=== PATIENT | male | born 1945 | race Caucasian/White ===

== ENCOUNTER 2017-01-16 19:59 | Inpatient (IN) | payer OTHER, MEDICAID ==
[~2017-01-16] VITALS: Ht 175.3 cm; Wt 82.1 kg
[~2017-01-16 19:59] MED LIST: ALBUAER3 IN; ALBUPOW26 XX; ASPI-231 PO; FLUT500M2 INH; IPRIH INH; METO50TA7 PO; OMEP20CA5 PO
[2017-01-16 20:36] LABS: Basophils # (auto) 0.1 uL; Basophils % (auto) 0.3 % (0.0-2.0); Eosinophils # (auto) 0.1 uL; Eosinophils % (auto) 0.8 % (0.0-7.0); Hemoglobin 16.3 g/dL (13.5-17.5); Lymphocytes # (auto) 3.6 uL; Lymphocytes % (auto) 20.5 % (10.0-50.0); Mean Corpuscular Hemoglobin 31.8 pg (28.0-32.0); Mean Corpuscular Hgb Conc. 32.7 g/dL (32.0-36.0); Mean Corpuscular Volume 97.3 fL (80.0-100.0); Mean Platelet Volume 7.4 fL (7.4-10.4); Monocytes # (auto) 1.5 uL; Monocytes % (auto) 8.3 % (0.0-12.0); Neutrophils # (auto) 12.4 uL; Neutrophils % (auto) 70.1 % (37.0-80.0); Platelet Count (auto) 407 10^3/uL (140-450); Red Cell Distribution Width 13.3 % (11.6-16.0); White Blood Cell 17.6 10^3/uL (4.4-10.8)
[2017-01-16 21:00] LABS: INR 0.96 (0.9-1.15); Partial Thromboplastin Time 24.3 sec (22.64-33.71); Prothrombin Time 10.4 sec (9.37-12.3)
[2017-01-16 21:21] LABS: Albumin 3.3 g/dL (3.4-5.0); BUN/Creatinine Ratio 18.4; Calcium 8.6 mg/dL (8.5-10.1); Magnesium 2.7 mg/dL (1.6-2.6); Potassium 4.8 mmol/L (3.5-5.1); Total Protein 6.6 g/dL (6.4-8.2)
[2017-01-16 21:30] LABS: B-Type Natriuretic Peptide 19.5 pg/mL (0-100); Temperature: 22.1 C (20.0-25.0)
[2017-01-16] MEDS ORDERED: IPRATROPIUM BROM 0.5 MG/2.5ML INH SOL NEB ONE (22:30)
[2017-01-16] MEDS ORDERED: methylPREDNISolone SOD SUCC 125 MG/2 ML VL IV ONE (22:30)
[2017-01-16] MEDS ORDERED: ALBUTEROL SULF 2.5 MG/0.5ML(0.5%) NEB SOLN NEB ONE (22:30)
[2017-01-16] MEDS ORDERED: cefTRIAXone 1GM/50ML D5W 50 ML IV ONE (22:30)
[2017-01-17] MEDS ORDERED: IOHEXOL 350 MG/ML 100ML IJ ONE (01:09)
[2017-01-17] MEDS ORDERED: ALBUTEROL SULF 2.5 MG/0.5ML(0.5%) NEB SOLN NEB ONE (01:30)
[2017-01-17] MEDS ORDERED: IPRATROPIUM BROM 0.5 MG/2.5ML INH SOL NEB ONE (01:30)
[2017-01-17] MEDS ORDERED: DEXTROSE (50%) 50ML SYRG IV PRN (03:00)
[2017-01-17] MEDS ORDERED: ONDANSETRON HCL 4 MG/2 ML VIAL IV PRN (03:00)
[2017-01-17] MEDS ORDERED: ACETAMINOPHEN 325 MG TAB PO PRN (03:00)
[2017-01-17 03:22] VITALS: BP 111/74
[2017-01-17 05:00] VITALS: BP 132/78
[2017-01-17] MEDS: ACCU-CHEK COMFORT CURVE STRIP VI SCH ×3 (07:26→17:54)
[2017-01-17] MEDS: InsuLIN REG 1unit/0.01ml Soln (100units/ml) SC SCH ×3 (07:27→17:54)
[2017-01-17] MEDS: FAMOTIDINE 20 MG TAB PO SCH ×2 (08:49→20:37)
[2017-01-17] MEDS: ENOXAPARIN SOD 40 MG/0.4 ML SYRINGE SC SCH (08:49)
[2017-01-17] MEDS: METOPROLOL SUCCINATE XL 50 MG TAB PO SCH (08:50)
[2017-01-17 09:00] VITALS: BP 124/78
[2017-01-17] MEDS ORDERED: cefTRIAXone 1GM/50ML D5W 50 ML IV SCH (09:00)
[2017-01-17] MEDS: IPRATROPIUM BROM 0.5 MG/2.5ML INH SOL NEB PRN ×4 (09:03→18:44)
[2017-01-17] MEDS: ALBUTEROL SULF 2.5 MG/0.5ML(0.5%) NEB SOLN NEB PRN ×4 (09:03→18:44)
[2017-01-17 13:00] VITALS: BP 105/72
[2017-01-17] MEDS ORDERED: DOXYCYCLINE 100 MG TAB/CAP PO ONE (14:15)
[2017-01-17 17:00] VITALS: BP 119/77
[2017-01-17] MEDS: BUDESONIDE (INHALATION) 0.5 MG/2 ML NEB NEB SCH (18:44)
[2017-01-17] MEDS: DOXYCYCLINE 100 MG TAB/CAP PO SCH (20:37)
[2017-01-17] MEDS: methylPREDNISolone SOD SUCC 40 MG/ML VL IV SCH (20:37)
[2017-01-17] MEDS: HYDROcodone-ACET 5/325MG TAB PO PRN (20:38)
[2017-01-17 21:14] VITALS: BP 105/67
[2017-01-18] VITALS (7 sets, daily range): BP systolic 117–147; BP diastolic 71–96
[2017-01-18] MEDS: ACCU-CHEK COMFORT CURVE STRIP VI SCH ×4 (00:12→18:00)
[2017-01-18] MEDS: InsuLIN REG 1unit/0.01ml Soln (100units/ml) SC SCH ×4 (00:14→18:00)
[2017-01-18] MEDS: HYDROcodone-ACET 5/325MG TAB PO PRN ×4 (00:54→20:17)
[2017-01-18] MEDS: methylPREDNISolone SOD SUCC 40 MG/ML VL IV SCH ×3 (05:25→21:49)
[2017-01-18] MEDS: BUDESONIDE (INHALATION) 0.5 MG/2 ML NEB NEB SCH ×2 (06:00→18:21)
[2017-01-18] MEDS: ALBUTEROL SULF 2.5 MG/0.5ML(0.5%) NEB SOLN NEB PRN ×2 (06:00→22:53)
[2017-01-18] MEDS: IPRATROPIUM BROM 0.5 MG/2.5ML INH SOL NEB PRN ×2 (06:00→22:53)
[2017-01-18] MEDS: METOPROLOL SUCCINATE XL 50 MG TAB PO SCH (10:31)
[2017-01-18] MEDS: DOXYCYCLINE 100 MG TAB/CAP PO SCH ×2 (10:31→21:49)
[2017-01-18] MEDS: ENOXAPARIN SOD 40 MG/0.4 ML SYRINGE SC SCH (10:32)
[2017-01-18] MEDS: FAMOTIDINE 20 MG TAB PO SCH ×2 (10:32→21:50)
[2017-01-19] MEDS ORDERED: HALOPERIDOL LACTATE 5 MG/ML INJ VIAL IM ONE (01:15)
[2017-01-19] MEDS: IPRATROPIUM BROM 0.5 MG/2.5ML INH SOL NEB PRN ×4 (02:34→22:55)
[2017-01-19] MEDS: ALBUTEROL SULF 2.5 MG/0.5ML(0.5%) NEB SOLN NEB PRN ×4 (02:34→22:55)
[2017-01-19] MEDS ORDERED: methylPREDNISolone SOD SUCC 125 MG/2 ML VL ONE (02:36)
[2017-01-19] MEDS ORDERED: methylPREDNISolone SOD SUCC 125 MG/2 ML VL IV ONE (02:45)
[2017-01-19] MEDS: methylPREDNISolone SOD SUCC 40 MG/ML VL IV SCH ×2 (05:46→16:37)
[2017-01-19] MEDS: ACCU-CHEK COMFORT CURVE STRIP VI SCH ×5 (05:59→23:20)
[2017-01-19] MEDS: InsuLIN REG 1unit/0.01ml Soln (100units/ml) SC SCH ×6 (05:59→23:20)
[2017-01-19] MEDS ORDERED: LORazepam 2MG/ML-1ML VIAL IV PRN (06:30)
[2017-01-19] MEDS: BUDESONIDE (INHALATION) 0.5 MG/2 ML NEB NEB SCH ×2 (06:34→22:55)
[2017-01-19] MEDS ORDERED: LORazepam 2MG/ML-1ML VIAL ONE (06:37)
[2017-01-19] MEDS ORDERED: LORazepam 2MG/ML-1ML VIAL IV ONE (06:45)
[2017-01-19 08:00] VITALS: BP 110/60
[2017-01-19 09:50] VITALS: BP 115/78
[2017-01-19] MEDS: ENOXAPARIN SOD 40 MG/0.4 ML SYRINGE SC SCH (10:00)
[2017-01-19] MEDS: METOPROLOL SUCCINATE XL 50 MG TAB PO SCH (10:00)
[2017-01-19] MEDS: DOXYCYCLINE 100 MG TAB/CAP PO SCH ×2 (10:00→20:35)
[2017-01-19] MEDS: FAMOTIDINE 20 MG TAB PO SCH ×2 (10:00→20:35)
[2017-01-19] MEDS ORDERED: HALOPERIDOL LACTATE 5 MG/ML INJ VIAL IV PRN (11:45)
[2017-01-19 14:45] LABS: Basophils # (auto) 0 uL; Eosinophils # (auto) 0 uL; Hematocrit 44.6 % (41.0-53.0); Hemoglobin 14.6 g/dL (13.5-17.5); Lymphocytes % (auto) 5.4 % (10.0-50.0); Mean Corpuscular Hemoglobin 31.6 pg (28.0-32.0); Mean Corpuscular Hgb Conc. 32.6 g/dL (32.0-36.0); Mean Platelet Volume 8.1 fL (7.4-10.4); Monocytes # (auto) 0.5 uL; Monocytes % (auto) 2.9 % (0.0-12.0); Neutrophils # (auto) 16.6 uL; Neutrophils % (auto) 91.7 % (37.0-80.0); Platelet Count (auto) 341 10^3/uL (140-450); White Blood Cell 18.1 10^3/uL (4.4-10.8)
[2017-01-19 14:55] LABS: Albumin 3.1 g/dL (3.4-5.0); BUN/Creatinine Ratio 29.1; Calcium 8.8 mg/dL (8.5-10.1); Potassium 4.7 mmol/L (3.5-5.1)
[2017-01-19 15:04] LABS: Bilirubin, Total 0.6 mg/dL (0.2-1.0); Temperature: 22.9 C (20.0-25.0); Total Protein 6.2 g/dL (6.4-8.2)
[2017-01-19] MEDS ORDERED: CYANOCOBALAMIN (B-12) 1000 MCG/1 ML VIAL SUBCUT ONE (15:45)
[2017-01-19 16:25] LABS: Urine Bilirubin Negative (Negative); Urine Blood Negative /uL (Negative); Urine Color Yellow (Yellow); Urine Glucose TRACE mg/dL (Normal); Urine Ketone Negative (Negative); Urine Nitrite Negative (Negative); Urine RBC <1 /hpf (0 - 3); Urine Urobilinogen Normal (Negative); Urine pH 6.5 (5.0-8.0)
[2017-01-19] MEDS: HYDROcodone-ACET 5/325MG TAB PO PRN ×2 (16:37→20:55)
[2017-01-19 20:00] VITALS: BP 123/75
[2017-01-19] MEDS ORDERED: CYANOCOBALAMIN (B-12) 1000 MCG/1 ML VIAL IM ONE (22:15)
[2017-01-20] MEDS: ALBUTEROL SULF 2.5 MG/0.5ML(0.5%) NEB SOLN NEB PRN ×4 (03:31→14:27)
[2017-01-20] MEDS: IPRATROPIUM BROM 0.5 MG/2.5ML INH SOL NEB PRN ×4 (03:31→14:27)
[2017-01-20 06:00] VITALS: BP 117/85
[2017-01-20] MEDS: methylPREDNISolone SOD SUCC 40 MG/ML VL IV SCH ×2 (06:19→17:51)
[2017-01-20] MEDS: ACCU-CHEK COMFORT CURVE STRIP VI SCH ×4 (06:19→23:40)
[2017-01-20] MEDS: InsuLIN REG 1unit/0.01ml Soln (100units/ml) SC SCH ×4 (06:34→23:40)
[2017-01-20 08:00] VITALS: BP 146/100
[2017-01-20] MEDS: HYDROcodone-ACET 5/325MG TAB PO PRN ×3 (08:35→22:39)
[2017-01-20] MEDS: DOXYCYCLINE 100 MG TAB/CAP PO SCH ×2 (09:20→21:32)
[2017-01-20] MEDS: METOPROLOL SUCCINATE XL 50 MG TAB PO SCH (09:21)
[2017-01-20] MEDS: CYANOCOBALAMIN 500 MCG TAB PO SCH (09:21)
[2017-01-20] MEDS: FAMOTIDINE 20 MG TAB PO SCH ×2 (09:21→21:32)
[2017-01-20] MEDS: ENOXAPARIN SOD 40 MG/0.4 ML SYRINGE SC SCH (09:22)
[2017-01-20] MEDS: BUDESONIDE (INHALATION) 0.5 MG/2 ML NEB NEB SCH ×2 (09:32→18:28)
[2017-01-20] MEDS ORDERED: CYANOCOBALAMIN (B-12) 1000 MCG/1 ML VIAL SUBCUT SCH (10:00)
[2017-01-20 17:00] VITALS: BP 120/78
[2017-01-20] MEDS: IPRATROPIUM BROM 0.5 MG/2.5ML INH SOL NEB SCH ×2 (18:27→22:01)
[2017-01-20] MEDS: ALBUTEROL SULF 2.5 MG/0.5ML(0.5%) NEB SOLN NEB SCH ×2 (18:27→22:01)
[2017-01-20 21:51] VITALS: BP 134/83
[2017-01-20] MEDS ORDERED: HALOPERIDOL LACTATE 5 MG/ML INJ VIAL IM PRN (22:00)
[2017-01-20] MEDS ORDERED: ALBUTEROL SULF 2.5 MG/0.5ML(0.5%) NEB SOLN NEB SCH (22:00)
[2017-01-20] MEDS ORDERED: IPRATROPIUM BROM 0.5 MG/2.5ML INH SOL NEB SCH (22:00)
[2017-01-21] MEDS: IPRATROPIUM BROM 0.5 MG/2.5ML INH SOL NEB SCH ×6 (02:00→22:24)
[2017-01-21] MEDS: ALBUTEROL SULF 2.5 MG/0.5ML(0.5%) NEB SOLN NEB SCH ×6 (02:00→22:24)
[2017-01-21 04:45] VITALS: BP 149/88
[2017-01-21 05:45] LABS: INR 0.98 (0.9-1.15); Prothrombin Time 10.6 sec (9.37-12.3)
[2017-01-21 05:47] LABS: Basophils # (auto) 0 uL; Eosinophils # (auto) 0 uL; Hematocrit 44.7 % (41.0-53.0); Hemoglobin 14.7 g/dL (13.5-17.5); Lymphocytes % (auto) 7.4 % (10.0-50.0); Mean Corpuscular Hemoglobin 31.8 pg (28.0-32.0); Mean Corpuscular Hgb Conc. 32.9 g/dL (32.0-36.0); Mean Corpuscular Volume 96.9 fL (80.0-100.0); Mean Platelet Volume 8.5 fL (7.4-10.4); Monocytes # (auto) 1.2 uL; Monocytes % (auto) 8.8 % (0.0-12.0); Neutrophils # (auto) 11.3 uL; Neutrophils % (auto) 83.8 % (37.0-80.0); Platelet Count (auto) 319 10^3/uL (140-450); Red Cell Distribution Width 13.2 % (11.6-16.0); White Blood Cell 13.4 10^3/uL (4.4-10.8)
[2017-01-21] MEDS: BUDESONIDE (INHALATION) 0.5 MG/2 ML NEB NEB SCH ×2 (05:57→19:06)
[2017-01-21] MEDS: InsuLIN REG 1unit/0.01ml Soln (100units/ml) SC SCH ×3 (06:00→18:20)
[2017-01-21 06:01] LABS: BUN/Creatinine Ratio 29.1; Calcium 8.7 mg/dL (8.5-10.1); Magnesium 2.9 mg/dL (1.6-2.6); Potassium 4.7 mmol/L (3.5-5.1)
[2017-01-21] MEDS: methylPREDNISolone SOD SUCC 40 MG/ML VL IV SCH (06:16)
[2017-01-21] MEDS: ACCU-CHEK COMFORT CURVE STRIP VI SCH ×3 (06:16→18:19)
[2017-01-21 08:00] VITALS: BP 114/80
[2017-01-21 09:31] VITALS: BP 114/80
[2017-01-21] MEDS: DOXYCYCLINE 100 MG TAB/CAP PO SCH ×2 (09:53→21:31)
[2017-01-21] MEDS: predniSONE 20 MG TAB PO SCH (09:53)
[2017-01-21] MEDS: FAMOTIDINE 20 MG TAB PO SCH ×2 (09:54→21:30)
[2017-01-21] MEDS: METOPROLOL SUCCINATE XL 50 MG TAB PO SCH (09:54)
[2017-01-21] MEDS: CYANOCOBALAMIN 500 MCG TAB PO SCH (09:54)
[2017-01-21] MEDS: HYDROcodone-ACET 5/325MG TAB PO PRN ×2 (09:57→21:30)
[2017-01-21] MEDS: ENOXAPARIN SOD 40 MG/0.4 ML SYRINGE SC SCH (09:57)
[2017-01-21 13:00] VITALS: BP 134/95
[2017-01-21 17:00] VITALS: BP 136/92
[2017-01-21 21:44] VITALS: BP 116/83
[2017-01-22] MEDS: ACCU-CHEK COMFORT CURVE STRIP VI SCH ×2 (00:37→06:08)
[2017-01-22] MEDS: IPRATROPIUM BROM 0.5 MG/2.5ML INH SOL NEB SCH ×4 (02:21→13:22)
[2017-01-22] MEDS: ALBUTEROL SULF 2.5 MG/0.5ML(0.5%) NEB SOLN NEB SCH ×4 (02:21→13:22)
[2017-01-22 04:54] VITALS: BP 145/87
[2017-01-22] MEDS: InsuLIN REG 1unit/0.01ml Soln (100units/ml) SC SCH ×2 (06:00)
[2017-01-22 06:28] LABS: Basophils # (auto) 0.2 uL; Basophils % (auto) 1.1 % (0.0-2.0); Eosinophils # (auto) 0 uL; Eosinophils % (auto) 0.1 % (0.0-7.0); Lymphocytes # (auto) 2.4 uL; Lymphocytes % (auto) 16.4 % (10.0-50.0); Mean Corpuscular Hemoglobin 31.7 pg (28.0-32.0); Mean Corpuscular Hgb Conc. 32.6 g/dL (32.0-36.0); Mean Corpuscular Volume 97.2 fL (80.0-100.0); Mean Platelet Volume 8.4 fL (7.4-10.4); Monocytes # (auto) 1.5 uL; Monocytes % (auto) 10.3 % (0.0-12.0); Neutrophils # (auto) 10.5 uL; Neutrophils % (auto) 72.1 % (37.0-80.0); Platelet Count (auto) 334 10^3/uL (140-450); Red Cell Distribution Width 13.1 % (11.6-16.0); White Blood Cell 14.6 10^3/uL (4.4-10.8)
[2017-01-22] MEDS: BUDESONIDE (INHALATION) 0.5 MG/2 ML NEB NEB SCH (06:32)
[2017-01-22 06:48] LABS: INR 0.97 (0.9-1.15); Prothrombin Time 10.5 sec (9.37-12.3)
[2017-01-22 06:57] LABS: BUN/Creatinine Ratio 26.5; Calcium 8.6 mg/dL (8.5-10.1); Magnesium 2.8 mg/dL (1.6-2.6); Potassium 4.3 mmol/L (3.5-5.1)
[2017-01-22] MEDS ORDERED: LORazepam 2MG/ML-1ML VIAL IV ONE (08:45)
[2017-01-22] MEDS ORDERED: CYAN500T2 PO (09:22)
[2017-01-22] MEDS: DOXYCYCLINE 100 MG TAB/CAP PO SCH (10:40)
[2017-01-22] MEDS: predniSONE 20 MG TAB PO SCH (10:40)
[2017-01-22] MEDS: METOPROLOL SUCCINATE XL 50 MG TAB PO SCH (10:41)
[2017-01-22] MEDS: FAMOTIDINE 20 MG TAB PO SCH (10:41)
[2017-01-22] MEDS: ENOXAPARIN SOD 40 MG/0.4 ML SYRINGE SC SCH (10:44)
[2017-01-22] MEDS: CYANOCOBALAMIN 500 MCG TAB PO SCH (10:44)
[2017-01-22 10:51] VITALS: BP 131/83
[2017-01-22 12:00] VITALS: BP 131/83
== END 2017-01-22 14:30 | disposition home health service (06) | DRG 70 ==
LOC: EDBD 19:59 → ER 20:02 → OVERFLOW 20:03 → CENTRAL 01-17 05:10 → TELE-CENTR 01-19 02:47
PROVIDERS: ADMIT Nurse Practitioner; ATTEND Internal Medicine
DX: G93.41 Metabolic encephalopathy (principal); J96.20 Acute and chronic respiratory failure, unspecified whether with hypoxia or hypercapnia; J44.1 Chronic obstructive pulmonary disease with (acute) exacerbation; E44.1 Mild protein-calorie malnutrition; J98.11 Atelectasis; G32.0 Subacute combined degeneration of spinal cord in diseases classified elsewhere; G95.89 Other specified diseases of spinal cord; N18.9 Chronic kidney disease, unspecified; E53.8 Deficiency of other specified B group vitamins; F17.210 Nicotine dependence, cigarettes, uncomplicated; F29 Unspecified psychosis not due to a substance or known physiological condition; D72.829 Elevated white blood cell count, unspecified; I12.9 Hypertensive chronic kidney disease with stage 1 through stage 4 chronic kidney disease, or unspecified chronic kidney disease; B19.20 Unspecified viral hepatitis C without hepatic coma; R32 Unspecified urinary incontinence; T38.0X5A Adverse effect of glucocorticoids and synthetic analogues, initial encounter; G62.9 Polyneuropathy, unspecified; Z83.3 Family history of diabetes mellitus; Z85.528 Personal history of other malignant neoplasm of kidney; Z90.5 Acquired absence of kidney; Z86.73 Personal history of transient ischemic attack (TIA), and cerebral infarction without residual deficits; Z99.81 Dependence on supplemental oxygen; Z79.82 Long term (current) use of aspirin; Z79.899 Other long term (current) drug therapy; Z88.8 Allergy status to other drugs, medicaments and biological substances; Z68.26 Body mass index [BMI] 26.0-26.9, adult; Z89.022 Acquired absence of left finger(s)
CPT/HCPCS: 36415; 36600; 70450; 71010; 71275; 80048; 80053; 81001; 82607; 82746; 82805; 82962; 83735; 83880; 84439; 84443; 84481; 84484; 85025; 85379; 85610; 85730; 93005; 94640; 95819; 96365; A4565; G0434; J0696; J1815

== ENCOUNTER 2017-04-29 08:55 | Inpatient (IN) | payer OTHER, MEDICAID ==
[~2017-04-29] VITALS: Ht 180.3 cm; Wt 77.6 kg
[~2017-04-29 08:55] MED LIST changes: -ALBUPOW26 XX; +CYAN500T2 PO; +LISI-275 PO; -METO50TA7 PO; -OMEP20CA5 PO; +PRED-559 PO
[2017-04-29 09:41] LABS: CONDITION Y; DEFINITIVE SEE PRINTOUT; Hemoglobin 19.3 g/dL (13.5-17.5); Mean Corpuscular Hemoglobin 31.6 pg (28.0-32.0); Mean Corpuscular Hgb Conc. 33.2 g/dL (32.0-36.0); Mean Platelet Volume 8.2 fL (7.4-10.4); Platelet Count (auto) 252 10^3/uL (140-450); Red Cell Distribution Width 13.4 % (11.6-16.0); SUSPECT SEE PRINTOUT; White Blood Cell 20.6 10^3/uL (4.4-10.8)
[2017-04-29 09:52] LABS: Metamyelocytes % 0; Myelocytes % 0; Promyelocytes % 0; Reactive Lymphocytes 0
[2017-04-29 10:13] LABS: Albumin 3.7 g/dL (3.4-5.0); BUN/Creatinine Ratio 34.2; Bilirubin, Total 1.5 mg/dL (0.2-1.0); Calcium 9.4 mg/dL (8.5-10.1); Total Protein 7.4 g/dL (6.4-8.2)
[2017-04-29] MEDS ORDERED: SODIUM CHLORIDE 0.9% 1,000 ML IV ONE (11:00)
[2017-04-29] MEDS ORDERED: methylPREDNISolone SOD SUCC 125 MG/2 ML VL IV ONE (11:00)
[2017-04-29] MEDS ORDERED: SODIUM CHLORIDE 0.9% 250 ML IV ONE (11:00)
[2017-04-29 11:09] LABS: Large Platelets FEW; Platelet Estimate Adequate
[2017-04-29] MEDS ORDERED: cefTRIAXone 1GM/50ML D5W 50 ML IV ONE (12:30)
[2017-04-29] MEDS ORDERED: PROMETHAZINE HCL 25 MG/ML 1ML IV PRN (12:45)
[2017-04-29] MEDS ORDERED: LACTULOSE 20Gm/30ML SOLN PO PRN (12:45)
[2017-04-29] MEDS ORDERED: NITROGLYCERIN 0.4 MG SL TAB SL PRN (12:45)
[2017-04-29] MEDS ORDERED: MORPHINE SULF INJ 2 MG/ML SYRINGE 1ML IV PRN (12:45)
[2017-04-29] MEDS ORDERED: TEMAZEPAM 15 MG CAP PO PRN (12:45)
[2017-04-29] MEDS ORDERED: ALBUTEROL SULF 2.5 MG/0.5ML(0.5%) NEB SOLN NEB PRN (12:45)
[2017-04-29] MEDS ORDERED: ACETAMINOPHEN 500 MG TAB PO PRN (12:45)
[2017-04-29] MEDS ORDERED: DEXTROSE (50%) 50ML SYRG IV PRN (12:45)
[2017-04-29] MEDS ORDERED: HYDROcodone-ACET 5/325MG TAB PO PRN (12:45)
[2017-04-29] MEDS: SODIUM CHLORIDE 0.9% 1,000 ML IV SCH (12:54)
[2017-04-29] MEDS ORDERED: PANTOPRAZOLE 40 MG TAB PO ONE (13:00)
[2017-04-29] MEDS ORDERED: ENOXAPARIN SOD 40 MG/0.4 ML SYRINGE SC ONE (13:00)
[2017-04-29] MEDS ORDERED: AZITHROMYCIN 500MG/D5W 250ML 250 ML IV ONE (13:00)
[2017-04-29] MEDS ORDERED: ASPirin-EC 81 mg tab PO ONE (13:00)
[2017-04-29] MEDS ORDERED: CYANOCOBALAMIN 500 MCG TAB PO ONE (13:00)
[2017-04-29] MEDS ORDERED: LISINOPRIL 5 MG TAB PO ONE (13:00)
[2017-04-29 14:35] VITALS: BP 118/84
[2017-04-29] MEDS: ACCU-CHEK COMFORT CURVE STRIP VI SCH ×2 (16:42→22:00)
[2017-04-29 17:00] VITALS: BP 103/82
[2017-04-29] MEDS: InsuLIN REG 1unit/0.01ml Soln (100units/ml) SC SCH ×2 (17:31→22:00)
[2017-04-29] MEDS: methylPREDNISolone SOD SUCC 40 MG/ML VL IV SCH (17:31)
[2017-04-29] MEDS: ALBUTEROL SULF 2.5 MG/0.5ML(0.5%) NEB SOLN NEB SCH (18:49)
[2017-04-29] MEDS: IPRATROPIUM BROM 0.5 MG/2.5ML INH SOL NEB SCH (18:49)
[2017-04-29 22:05] VITALS: BP 92/60
[2017-04-30] MEDS: ALBUTEROL SULF 2.5 MG/0.5ML(0.5%) NEB SOLN NEB SCH ×4 (01:45→19:58)
[2017-04-30] MEDS: IPRATROPIUM BROM 0.5 MG/2.5ML INH SOL NEB SCH ×4 (01:45→19:58)
[2017-04-30] MEDS: SODIUM CHLORIDE 0.9% 1,000 ML IV SCH ×2 (02:15→10:43)
[2017-04-30 04:46] VITALS: BP 98/55
[2017-04-30 05:35] LABS: CONDITION Y; Hematocrit 46.6 % (41.0-53.0); Hemoglobin 15.6 g/dL (13.5-17.5); Mean Corpuscular Hemoglobin 32.2 pg (28.0-32.0); Mean Corpuscular Hgb Conc. 33.4 g/dL (32.0-36.0); Mean Corpuscular Volume 96.4 fL (80.0-100.0); Mean Platelet Volume 8.5 fL (7.4-10.4); Platelet Count (auto) 246 10^3/uL (140-450); Red Cell Distribution Width 13.4 % (11.6-16.0); SUSPECT SEE PRINTOUT; White Blood Cell 22.6 10^3/uL (4.4-10.8)
[2017-04-30] MEDS: InsuLIN REG 1unit/0.01ml Soln (100units/ml) SC SCH ×4 (05:43→21:23)
[2017-04-30] MEDS: ACCU-CHEK COMFORT CURVE STRIP VI SCH ×4 (05:43→21:24)
[2017-04-30] MEDS: methylPREDNISolone SOD SUCC 40 MG/ML VL IV SCH ×4 (05:43→21:12)
[2017-04-30 06:21] LABS: Albumin 2.5 g/dL (3.4-5.0); BUN/Creatinine Ratio 47.3; Bilirubin, Total 0.6 mg/dL (0.2-1.0); Calcium 8.2 mg/dL (8.5-10.1); Potassium 4.3 mmol/L (3.5-5.1); Total Protein 5.3 g/dL (6.4-8.2)
[2017-04-30 06:48] LABS: Metamyelocytes % 0; Myelocytes % 0; Promyelocytes % 0; Reactive Lymphocytes 0
[2017-04-30 07:37] LABS: Hypersegmented Neutrophils Present; Platelet Estimate Adequate
[2017-04-30 07:38] LABS: RBC Morphology Normal
[2017-04-30 08:30] VITALS: BP 100/49
[2017-04-30] MEDS ORDERED: LISINOPRIL 5 MG TAB PO SCH (10:00)
[2017-04-30] MEDS: PANTOPRAZOLE 40 MG TAB PO SCH (10:41)
[2017-04-30] MEDS: CYANOCOBALAMIN 500 MCG TAB PO SCH (10:41)
[2017-04-30] MEDS: ASPirin-EC 81 mg tab PO SCH (10:41)
[2017-04-30] MEDS: AZITHROMYCIN 500MG/D5W 250ML 250 ML IV SCH (10:41)
[2017-04-30] MEDS: ENOXAPARIN SOD 40 MG/0.4 ML SYRINGE SC SCH (10:42)
[2017-04-30] MEDS: HYDROcodone-ACET 5/325MG TAB PO PRN ×2 (10:42→18:39)
[2017-04-30] MEDS ORDERED: cefTRIAXone 1GM/50ML D5W 50 ML IV ONE (12:00)
[2017-04-30 12:30] VITALS: BP 84/48
[2017-04-30 15:26] LABS: Urine RBC None Seen /hpf (0 - 3)
[2017-04-30 15:54] LABS: Urine Bilirubin Negative (Negative); Urine Blood Negative /uL (Negative); Urine Color Yellow (Yellow); Urine Ketone Negative (Negative); Urine Nitrite Negative (Negative); Urine Squamous Epithelial Cell FEW /hpf (<5); Urine Urobilinogen Normal (Negative)
[2017-04-30 15:56] LABS: Urine Glucose 4+ mg/dL (Normal)
[2017-04-30 17:13] VITALS: BP 102/64
[2017-04-30] MEDS: BUDESONIDE (INHALATION) 0.5 MG/2 ML NEB NEB SCH (19:58)
[2017-04-30 21:40] VITALS: BP 129/63
[2017-05-01] MEDS: ALBUTEROL SULF 2.5 MG/0.5ML(0.5%) NEB SOLN NEB SCH ×4 (00:15→18:58)
[2017-05-01] MEDS: IPRATROPIUM BROM 0.5 MG/2.5ML INH SOL NEB SCH ×4 (00:15→18:58)
[2017-05-01] MEDS: methylPREDNISolone SOD SUCC 40 MG/ML VL IV SCH ×3 (04:25→21:46)
[2017-05-01 05:05] VITALS: BP 98/53
[2017-05-01] MEDS: MORPHINE SULF INJ 2 MG/ML SYRINGE 1ML IV PRN ×4 (05:31→21:45)
[2017-05-01] MEDS: InsuLIN REG 1unit/0.01ml Soln (100units/ml) SC SCH ×4 (05:41→21:48)
[2017-05-01] MEDS: ACCU-CHEK COMFORT CURVE STRIP VI SCH ×4 (05:41→21:49)
[2017-05-01 06:40] LABS: CONDITION Y; Hematocrit 45.1 % (41.0-53.0); Hemoglobin 14.9 g/dL (13.5-17.5); Mean Corpuscular Hemoglobin 32.2 pg (28.0-32.0); Mean Corpuscular Volume 97.5 fL (80.0-100.0); Mean Platelet Volume 8.4 fL (7.4-10.4); Platelet Count (auto) 226 10^3/uL (140-450); Red Cell Distribution Width 13.4 % (11.6-16.0); SUSPECT SEE PRINTOUT; White Blood Cell 26.6 10^3/uL (4.4-10.8)
[2017-05-01 07:01] LABS: Metamyelocytes % 0; Myelocytes % 0; Promyelocytes % 0; Reactive Lymphocytes 0
[2017-05-01] MEDS: BUDESONIDE (INHALATION) 0.5 MG/2 ML NEB NEB SCH ×2 (07:09→18:59)
[2017-05-01 07:58] LABS: Platelet Estimate Adequate
[2017-05-01 08:00] VITALS: BP 124/90
[2017-05-01 08:30] VITALS: BP 124/90
[2017-05-01] MEDS ORDERED: cefTRIAXone 1GM/50ML D5W 50 ML IV SCH (09:00)
[2017-05-01] MEDS: PANTOPRAZOLE 40 MG TAB PO SCH (09:38)
[2017-05-01] MEDS: ENOXAPARIN SOD 40 MG/0.4 ML SYRINGE SC SCH (09:38)
[2017-05-01] MEDS: Boost Glucose Control 8 Ounces PO SCH ×3 (09:38→17:51)
[2017-05-01] MEDS: ASPirin-EC 81 mg tab PO SCH (09:38)
[2017-05-01] MEDS: AZITHROMYCIN 500MG/D5W 250ML 250 ML IV SCH (09:39)
[2017-05-01] MEDS: CYANOCOBALAMIN 500 MCG TAB PO SCH (12:12)
[2017-05-01] MEDS ORDERED: VANCOMYCIN PER PHARMACY 0 MG IV SCH (12:45)
[2017-05-01] MEDS ORDERED: DIGOXIN 0.125 MG TAB PO ONE (12:45)
[2017-05-01 12:58] VITALS: BP 100/70
[2017-05-01] MEDS: VANCOMYCIN 1GM/250ML D5W 250 ML IV SCH (13:58)
[2017-05-01] MEDS: METOPROLOL SUCCINATE XL 50 MG TAB PO SCH (15:10)
[2017-05-01] MEDS: LORazepam 0.5 MG TAB PO PRN (15:10)
[2017-05-01] MEDS ORDERED: LEVOFLOXACIN 500MG 100 ML IV ONE (15:30)
[2017-05-01 17:27] VITALS: BP 130/73
[2017-05-01 22:16] VITALS: BP 139/78
[2017-05-02] MEDS: IPRATROPIUM BROM 0.5 MG/2.5ML INH SOL NEB SCH ×4 (00:25→18:46)
[2017-05-02] MEDS: ALBUTEROL SULF 2.5 MG/0.5ML(0.5%) NEB SOLN NEB SCH ×4 (00:25→18:46)
[2017-05-02] MEDS: methylPREDNISolone SOD SUCC 40 MG/ML VL IV SCH (03:31)
[2017-05-02] MEDS: VANCOMYCIN 1GM/250ML D5W 250 ML IV SCH ×3 (03:31→18:06)
[2017-05-02] MEDS: MORPHINE SULF INJ 2 MG/ML SYRINGE 1ML IV PRN ×2 (03:37→20:35)
[2017-05-02 04:32] VITALS: BP 131/68
[2017-05-02 06:33] LABS: CONDITION Y; Hematocrit 40.8 % (41.0-53.0); Hemoglobin 13.7 g/dL (13.5-17.5); Mean Corpuscular Hemoglobin 32.3 pg (28.0-32.0); Mean Corpuscular Hgb Conc. 33.5 g/dL (32.0-36.0); Mean Corpuscular Volume 96.4 fL (80.0-100.0); Mean Platelet Volume 8.1 fL (7.4-10.4); Platelet Count (auto) 210 10^3/uL (140-450); Red Cell Distribution Width 13.7 % (11.6-16.0); SUSPECT SEE PRINTOUT; White Blood Cell 23.9 10^3/uL (4.4-10.8)
[2017-05-02 06:42] LABS: Metamyelocytes % 0; Myelocytes % 0; Potassium 4.8 mmol/L (3.5-5.1); Promyelocytes % 0; Reactive Lymphocytes 0
[2017-05-02 06:47] LABS: BUN/Creatinine Ratio 33.3; Calcium 8.3 mg/dL (8.5-10.1); Magnesium 2.4 mg/dL (1.6-2.6)
[2017-05-02] MEDS: InsuLIN REG 1unit/0.01ml Soln (100units/ml) SC SCH ×4 (06:53→22:40)
[2017-05-02] MEDS: ACCU-CHEK COMFORT CURVE STRIP VI SCH ×4 (06:53→22:40)
[2017-05-02] MEDS: BUDESONIDE (INHALATION) 0.5 MG/2 ML NEB NEB SCH ×2 (07:13→18:46)
[2017-05-02] MEDS: Boost Glucose Control 8 Ounces PO SCH ×3 (08:00→18:05)
[2017-05-02 09:25] VITALS: BP 121/82
[2017-05-02] MEDS: HYDROcodone-ACET 5/325MG TAB PO PRN ×2 (09:36→17:46)
[2017-05-02] MEDS: LEVOFLOXACIN 500MG 100 ML IV SCH (09:46)
[2017-05-02] MEDS: CYANOCOBALAMIN 500 MCG TAB PO SCH (09:46)
[2017-05-02] MEDS: ASPirin-EC 81 mg tab PO SCH (09:46)
[2017-05-02] MEDS: PANTOPRAZOLE 40 MG TAB PO SCH (09:46)
[2017-05-02] MEDS: METOPROLOL SUCCINATE XL 50 MG TAB PO SCH (09:48)
[2017-05-02] MEDS ORDERED: DIGOXIN 0.125 MG TAB PO SCH (10:00)
[2017-05-02] MEDS ORDERED: AZITHROMYCIN 250 MG TAB PO SCH (10:00)
[2017-05-02 11:50] VITALS: BP 136/87
[2017-05-02] MEDS: ENOXAPARIN SOD 40 MG/0.4 ML SYRINGE SC SCH (11:53)
[2017-05-02 12:13] LABS: Platelet Estimate Adequate
[2017-05-02 12:14] LABS: Burr Cells FEW
[2017-05-02 13:09] VITALS: BP 136/87
[2017-05-02 21:43] VITALS: BP 118/81
[2017-05-02] MEDS ORDERED: methylPREDNISolone SOD SUCC 40 MG/ML VL IV SCH (22:00)
[2017-05-03] MEDS: MORPHINE SULF INJ 2 MG/ML SYRINGE 1ML IV PRN (02:23)
[2017-05-03 05:00] VITALS: BP 140/89
[2017-05-03 05:38] LABS: CONDITION Y; Hematocrit 44.3 % (41.0-53.0); Hemoglobin 14.7 g/dL (13.5-17.5); Mean Corpuscular Hgb Conc. 33.2 g/dL (32.0-36.0); Mean Corpuscular Volume 96.5 fL (80.0-100.0); Mean Platelet Volume 8.4 fL (7.4-10.4); Platelet Count (auto) 225 10^3/uL (140-450); Red Cell Distribution Width 13.5 % (11.6-16.0); SUSPECT SEE PRINTOUT
[2017-05-03 05:45] LABS: Metamyelocytes % 0; Myelocytes % 0; Promyelocytes % 0; Reactive Lymphocytes 0
[2017-05-03] MEDS: VANCOMYCIN 1GM/250ML D5W 250 ML IV SCH ×3 (05:45→18:00)
[2017-05-03] MEDS: ACCU-CHEK COMFORT CURVE STRIP VI SCH ×4 (05:49→22:00)
[2017-05-03] MEDS: InsuLIN REG 1unit/0.01ml Soln (100units/ml) SC SCH ×4 (06:08→22:00)
[2017-05-03 06:26] LABS: Hypersegmented Neutrophils Present
[2017-05-03 06:27] LABS: Platelet Estimate Adequate; RBC Morphology Normal
[2017-05-03] MEDS: IPRATROPIUM BROM 0.5 MG/2.5ML INH SOL NEB SCH ×5 (06:30→23:11)
[2017-05-03] MEDS: BUDESONIDE (INHALATION) 0.5 MG/2 ML NEB NEB SCH ×2 (06:30→18:53)
[2017-05-03] MEDS: ALBUTEROL SULF 2.5 MG/0.5ML(0.5%) NEB SOLN NEB SCH ×5 (06:30→23:11)
[2017-05-03 08:00] VITALS: BP 121/82
[2017-05-03 09:00] VITALS: BP 135/90
[2017-05-03 09:16] LABS: INR 0.94 (0.9-1.15); Prothrombin Time 10.2 sec (9.37-12.3)
[2017-05-03] MEDS: LEVOFLOXACIN 500MG 100 ML IV SCH (10:00)
[2017-05-03] MEDS: Boost Glucose Control 8 Ounces PO SCH ×3 (10:32→17:49)
[2017-05-03] MEDS: PANTOPRAZOLE 40 MG TAB PO SCH (10:33)
[2017-05-03] MEDS: ASPirin-EC 81 mg tab PO SCH (10:33)
[2017-05-03] MEDS: METOPROLOL SUCCINATE XL 50 MG TAB PO SCH (10:34)
[2017-05-03] MEDS: CYANOCOBALAMIN 500 MCG TAB PO SCH (10:34)
[2017-05-03 13:00] VITALS: BP 142/93
[2017-05-03 17:00] VITALS: BP 119/71
[2017-05-03] MEDS: LORazepam 0.5 MG TAB PO PRN (20:04)
[2017-05-03] MEDS: HYDROcodone-ACET 5/325MG TAB PO PRN (20:05)
[2017-05-03 22:00] VITALS: BP 144/81
[2017-05-04 05:00] VITALS: BP 123/66
[2017-05-04] MEDS: VANCOMYCIN 1GM/250ML D5W 250 ML IV SCH (05:31)
[2017-05-04 06:11] LABS: Basophils # (auto) 0 uL; CONDITION Y; Eosinophils # (auto) 0 uL; Eosinophils % (auto) 0.2 % (0.0-7.0); Hematocrit 38.7 % (41.0-53.0); Lymphocytes # (auto) 0.9 uL; Lymphocytes % (auto) 5.9 % (10.0-50.0); Mean Corpuscular Hemoglobin 32.2 pg (28.0-32.0); Mean Corpuscular Hgb Conc. 33.5 g/dL (32.0-36.0); Mean Platelet Volume 8.3 fL (7.4-10.4); Monocytes % (auto) 6.7 % (0.0-12.0); Neutrophils # (auto) 12.9 uL; Neutrophils % (auto) 87.2 % (37.0-80.0); Platelet Count (auto) 236 10^3/uL (140-450); Red Cell Distribution Width 13.7 % (11.6-16.0); White Blood Cell 14.8 10^3/uL (4.4-10.8)
[2017-05-04] MEDS: ALBUTEROL SULF 2.5 MG/0.5ML(0.5%) NEB SOLN NEB SCH ×2 (06:21→13:37)
[2017-05-04] MEDS: IPRATROPIUM BROM 0.5 MG/2.5ML INH SOL NEB SCH ×2 (06:21→13:37)
[2017-05-04] MEDS: BUDESONIDE (INHALATION) 0.5 MG/2 ML NEB NEB SCH (06:22)
[2017-05-04] MEDS: InsuLIN REG 1unit/0.01ml Soln (100units/ml) SC SCH ×2 (06:48→11:30)
[2017-05-04] MEDS: ACCU-CHEK COMFORT CURVE STRIP VI SCH ×2 (06:49→11:30)
[2017-05-04 08:00] VITALS: BP 125/81
[2017-05-04] MEDS: HYDROcodone-ACET 5/325MG TAB PO PRN (08:18)
[2017-05-04] MEDS: Boost Glucose Control 8 Ounces PO SCH ×2 (08:18→12:00)
[2017-05-04] MEDS: CYANOCOBALAMIN 500 MCG TAB PO SCH (09:27)
[2017-05-04] MEDS: ASPirin-EC 81 mg tab PO SCH (09:27)
[2017-05-04] MEDS: PANTOPRAZOLE 40 MG TAB PO SCH (09:27)
[2017-05-04] MEDS: METOPROLOL SUCCINATE XL 50 MG TAB PO SCH (09:28)
[2017-05-04] MEDS ORDERED: VANCOMYCIN 1GM/250ML D5W 250 ML IV SCH (10:00)
[2017-05-04] MEDS ORDERED: predniSONE 20 MG TAB PO SCH (10:00)
[2017-05-04] MEDS: LEVOFLOXACIN 500MG 100 ML IV SCH (15:05)
[2017-05-04] MEDS: MORPHINE SULF INJ 2 MG/ML SYRINGE 1ML IV PRN (15:06)
[2017-05-04 15:30] VITALS: BP 125/81
== END 2017-05-04 16:30 | disposition home or self-care (01) | DRG 871 ==
LOC: EDBD 08:55 → ER 08:59 → TELE 09:00 → TELE-WESTW 15:27
PROVIDERS: ADMIT Internal Medicine; ATTEND Internal Medicine
DX: A41.9 Sepsis, unspecified organism (principal); J18.9 Pneumonia, unspecified organism; J96.10 Chronic respiratory failure, unspecified whether with hypoxia or hypercapnia; J44.0 Chronic obstructive pulmonary disease with (acute) lower respiratory infection; J98.11 Atelectasis; I47.1 Supraventricular tachycardia; J44.1 Chronic obstructive pulmonary disease with (acute) exacerbation; E86.0 Dehydration; D75.1 Secondary polycythemia; E09.9 Drug or chemical induced diabetes mellitus without complications; F17.210 Nicotine dependence, cigarettes, uncomplicated; I11.0 Hypertensive heart disease with heart failure; I73.9 Peripheral vascular disease, unspecified; I70.0 Atherosclerosis of aorta; B19.20 Unspecified viral hepatitis C without hepatic coma; I25.10 Atherosclerotic heart disease of native coronary artery without angina pectoris; I50.9 Heart failure, unspecified; T38.0X5A Adverse effect of glucocorticoids and synthetic analogues, initial encounter; Z79.84 Long term (current) use of oral hypoglycemic drugs; Z83.3 Family history of diabetes mellitus; Z90.5 Acquired absence of kidney; Z90.81 Acquired absence of spleen; Z95.1 Presence of aortocoronary bypass graft; Z99.81 Dependence on supplemental oxygen; Z91.041 Radiographic dye allergy status
CPT/HCPCS: 36415; 71010; 71020; 80048; 80053; 80061; 80202; 81001; 82565; 82962; 83036; 83735; 84484; 85007; 85025; 85027; 85048; 85610; 85730; 87040; 87045; 87081; 87086; 87177; 87493; 87899; 93005; 94640; 96365; 96368; 97116; 97530; A4565; J0696; J1815; J1956

== ENCOUNTER 2017-05-11 14:58 | Inpatient (IN) | payer OTHER, MEDICAID ==
[~2017-05-11] VITALS: Ht 180.3 cm; Wt 82.1 kg
[2017-05-11] MEDS ORDERED: cefTRIAXone 1GM/50ML D5W 50 ML IV ONE (15:15)
[2017-05-11] MEDS ORDERED: LEVOFLOXACIN 750MG 150 ML IV ONE (15:15)
[2017-05-11] MEDS ORDERED: methylPREDNISolone SOD SUCC 125 MG/2 ML VL IV ONE (15:15)
[2017-05-11] MEDS ORDERED: ALBUTEROL SULF 2.5 MG/0.5ML(0.5%) NEB SOLN HHN ONE (15:15)
[2017-05-11] MEDS ORDERED: IPRATROPIUM BROM 0.5 MG/2.5ML INH SOL HHN ONE (15:15)
[2017-05-11 15:45] LABS: Base Excess 1.1 mmol/L (-2.0-2.0); Blood 02Sat 95.6 % (96-100); Blood COHb 0.5 % (0.5-1.5); Blood MetHb 0.4 % (0.0-1.5); HCO3 25.1 mmol/L (22-26.0); HHb 4.4 % (0.0-5.0); MODE NASAL CANNULA; O2Hb 94.7 % (94.0-97.0); PCO2 38.2 mmHg (35.0-45.0); PCO2(T) 38.2 mmHg (35.0-45.0); PO2 79.5 mmHg (80.0-100.0); PO2(T) 79.5 mmHg (80.0-100.0); Sample Type Arterial; pH 7.436 (7.350-7.450)
[2017-05-11 16:11] LABS: Basophils # (auto) 0 uL; CONDITION Y; Eosinophils # (auto) 0 uL; Hematocrit 47.8 % (41.0-53.0); Hemoglobin 16.1 g/dL (13.5-17.5); Lymphocytes # (auto) 0.9 uL; Lymphocytes % (auto) 6.5 % (10.0-50.0); Mean Corpuscular Hemoglobin 32.7 pg (28.0-32.0); Mean Corpuscular Hgb Conc. 33.7 g/dL (32.0-36.0); Mean Corpuscular Volume 96.9 fL (80.0-100.0); Mean Platelet Volume 7.7 fL (7.4-10.4); Monocytes # (auto) 0.8 uL; Neutrophils # (auto) 12.4 uL; Neutrophils % (auto) 87.5 % (37.0-80.0); Platelet Count (auto) 276 10^3/uL (140-450); Red Cell Distribution Width 14.2 % (11.6-16.0); White Blood Cell 14.1 10^3/uL (4.4-10.8)
[2017-05-11 16:25] LABS: Lactic Acid w/Reflex 2.9 mmol/L (0.4-2.0)
[2017-05-11 16:28] LABS: Albumin 2.8 g/dL (3.4-5.0); BUN/Creatinine Ratio 24.5; Magnesium 2.4 mg/dL (1.6-2.6); Potassium 3.9 mmol/L (3.5-5.1); Total Protein 6.3 g/dL (6.4-8.2)
[2017-05-11 16:31] LABS: B-Type Natriuretic Peptide 67.67 pg/mL (0-100)
[2017-05-11 16:32] LABS: Temperature: 22.9 C (20.0-25.0)
[2017-05-11 16:39] LABS: REFLEX LACTIC ACID YES OR NO YES
[2017-05-11] MEDS ORDERED: SODIUM CHLORIDE 0.9% 1,000 ML IV ONE (17:15)
[2017-05-11 17:20] LABS: Urine Bilirubin Negative (Negative); Urine Blood Negative /uL (Negative); Urine Color Yellow (Yellow); Urine Glucose Normal (Normal); Urine Ketone Negative (Negative); Urine Nitrite Negative (Negative); Urine RBC <1 /hpf (0 - 3); Urine Urobilinogen Normal (Negative); Urine pH 6.5 (5.0-8.0)
[2017-05-11] MEDS ORDERED: ALBUTEROL SULF 2.5 MG/0.5ML(0.5%) NEB SOLN NEB PRN (17:30)
[2017-05-11] MEDS ORDERED: LORazepam 0.5 MG TAB PO PRN (17:30)
[2017-05-11] MEDS ORDERED: ASPirin 81 mg TAB PO ONE (17:30)
[2017-05-11] MEDS ORDERED: ACETAMINOPHEN 500 MG TAB PO PRN (17:30)
[2017-05-11] MEDS ORDERED: LACTULOSE 20Gm/30ML SOLN PO PRN (17:30)
[2017-05-11] MEDS ORDERED: TEMAZEPAM 15 MG CAP PO PRN (17:30)
[2017-05-11] MEDS ORDERED: NITROGLYCERIN 0.4 MG SL TAB SL PRN (17:30)
[2017-05-11] MEDS ORDERED: PROMETHAZINE HCL 25 MG/ML 1ML IV PRN (17:30)
[2017-05-11] MEDS ORDERED: ENOXAPARIN SOD 80 MG/0.8ML SYRINGE SC ONE (17:30)
[2017-05-11] MEDS ORDERED: DEXTROSE (50%) 50ML SYRG IV PRN (17:30)
[2017-05-11] MEDS ORDERED: MORPHINE SULF INJ 2 MG/ML SYRINGE 1ML IV PRN (17:30)
[2017-05-11] MEDS: methylPREDNISolone SOD SUCC 40 MG/ML VL IV SCH ×2 (18:00→23:59)
[2017-05-11 18:53] LABS: Lactic Acid w/Reflex 5.7 mmol/L (0.4-2.0)
[2017-05-11 18:55] LABS: REFLEX LACTIC ACID YES OR NO NO
[2017-05-11] MEDS: BUDESONIDE (INHALATION) 0.5 MG/2 ML NEB NEB SCH (18:58)
[2017-05-11] MEDS: IPRATROPIUM BROM 0.5 MG/2.5ML INH SOL NEB SCH (18:58)
[2017-05-11] MEDS: ALBUTEROL SULF 2.5 MG/0.5ML(0.5%) NEB SOLN NEB SCH (18:58)
[2017-05-11 20:00] VITALS: BP 102/61
[2017-05-11] MEDS: HYDROcodone-ACET 5/325MG TAB PO PRN (20:03)
[2017-05-11] MEDS: MORPHINE SULFATE 4 MG/ML SYRG IV PRN (21:09)
[2017-05-11 21:30] VITALS: BP 121/77
[2017-05-11] MEDS: InsuLIN REG 1unit/0.01ml Soln (100units/ml) SC SCH (22:00)
[2017-05-11] MEDS ORDERED: PATIENTS OWN MEDICATION (Fluticasone-Salmeterol (Advair Diskus 500/50) 1 PUFF) INH SCH (22:00)
[2017-05-11] MEDS: ACCU-CHEK COMFORT CURVE STRIP VI SCH (22:28)
[2017-05-11] MEDS: CARVEDILOL 3.125 MG TAB PO SCH (22:28)
[2017-05-12] VITALS (7 sets, daily range): BP systolic 91–121; BP diastolic 54–77
[2017-05-12] MEDS: IPRATROPIUM BROM 0.5 MG/2.5ML INH SOL NEB SCH ×4 (00:35→19:14)
[2017-05-12] MEDS: ALBUTEROL SULF 2.5 MG/0.5ML(0.5%) NEB SOLN NEB SCH ×4 (00:36→19:14)
[2017-05-12] MEDS: MORPHINE SULFATE 4 MG/ML SYRG IV PRN (04:28)
[2017-05-12] MEDS: methylPREDNISolone SOD SUCC 40 MG/ML VL IV SCH (05:30)
[2017-05-12] MEDS: ACCU-CHEK COMFORT CURVE STRIP VI SCH ×4 (05:58→21:29)
[2017-05-12] MEDS: InsuLIN REG 1unit/0.01ml Soln (100units/ml) SC SCH ×4 (05:58→21:29)
[2017-05-12] MEDS: BUDESONIDE (INHALATION) 0.5 MG/2 ML NEB NEB SCH ×2 (06:59→19:14)
[2017-05-12 07:02] LABS: Albumin 2.7 g/dL (3.4-5.0); BUN/Creatinine Ratio 25.4; Bilirubin, Total 0.5 mg/dL (0.2-1.0); Calcium 8.5 mg/dL (8.5-10.1)
[2017-05-12 07:12] LABS: Basophils # (auto) 0 uL; CONDITION Y; Eosinophils # (auto) 0 uL; Hematocrit 44.7 % (41.0-53.0); Hemoglobin 15.4 g/dL (13.5-17.5); Lymphocytes # (auto) 0.8 uL; Lymphocytes % (auto) 5.1 % (10.0-50.0); Mean Corpuscular Hemoglobin 32.7 pg (28.0-32.0); Mean Corpuscular Hgb Conc. 34.6 g/dL (32.0-36.0); Mean Corpuscular Volume 94.6 fL (80.0-100.0); Mean Platelet Volume 8.5 fL (7.4-10.4); Monocytes # (auto) 0.2 uL; Monocytes % (auto) 1.6 % (0.0-12.0); Neutrophils # (auto) 14.3 uL; Neutrophils % (auto) 93.3 % (37.0-80.0); Platelet Count (auto) 234 10^3/uL (140-450); Red Cell Distribution Width 13.8 % (11.6-16.0); White Blood Cell 15.3 10^3/uL (4.4-10.8)
[2017-05-12 07:20] LABS: Potassium 4.1 mmol/L (3.5-5.1)
[2017-05-12] MEDS: HYDROcodone-ACET 5/325MG TAB PO PRN ×3 (08:54→21:28)
[2017-05-12] MEDS ORDERED: AZITHROMYCIN 500MG/D5W 250ML 250 ML IV SCH (10:00)
[2017-05-12] MEDS: CARVEDILOL 3.125 MG TAB PO SCH (10:14)
[2017-05-12] MEDS: LISINOPRIL 5 MG TAB PO SCH (10:14)
[2017-05-12] MEDS: ASPirin-EC 81 mg tab PO SCH (10:14)
[2017-05-12] MEDS: CYANOCOBALAMIN 500 MCG TAB PO SCH (10:15)
[2017-05-12] MEDS: ENOXAPARIN SOD 40 MG/0.4 ML SYRINGE SC SCH (10:16)
[2017-05-12] MEDS: DOXYCYCLINE HYC 100MG/250ML 250 ML IV SCH (15:58)
[2017-05-13] MEDS: DOXYCYCLINE HYC 100MG/250ML 250 ML IV SCH ×2 (00:06→12:21)
[2017-05-13] MEDS: ALBUTEROL SULF 2.5 MG/0.5ML(0.5%) NEB SOLN NEB SCH ×4 (00:48→19:01)
[2017-05-13] MEDS: IPRATROPIUM BROM 0.5 MG/2.5ML INH SOL NEB SCH ×4 (00:48→19:00)
[2017-05-13 05:00] VITALS: BP 102/68
[2017-05-13] MEDS: ACCU-CHEK COMFORT CURVE STRIP VI SCH ×4 (06:11→22:27)
[2017-05-13] MEDS: InsuLIN REG 1unit/0.01ml Soln (100units/ml) SC SCH ×4 (06:12→22:27)
[2017-05-13] MEDS: HYDROcodone-ACET 5/325MG TAB PO PRN ×2 (06:22→15:56)
[2017-05-13 06:38] LABS: Basophils # (auto) 0 uL; Basophils % (auto) 0.1 % (0.0-2.0); CONDITION Y; Eosinophils # (auto) 0 uL; Hematocrit 40.9 % (41.0-53.0); Hemoglobin 13.8 g/dL (13.5-17.5); Lymphocytes % (auto) 5.7 % (10.0-50.0); Mean Corpuscular Hemoglobin 32.4 pg (28.0-32.0); Mean Corpuscular Hgb Conc. 33.7 g/dL (32.0-36.0); Mean Corpuscular Volume 96.4 fL (80.0-100.0); Mean Platelet Volume 7.7 fL (7.4-10.4); Monocytes # (auto) 1.2 uL; Monocytes % (auto) 6.7 % (0.0-12.0); Neutrophils # (auto) 15.7 uL; Neutrophils % (auto) 87.5 % (37.0-80.0); Platelet Count (auto) 259 10^3/uL (140-450); Red Cell Distribution Width 13.9 % (11.6-16.0); White Blood Cell 17.9 10^3/uL (4.4-10.8)
[2017-05-13] MEDS: BUDESONIDE (INHALATION) 0.5 MG/2 ML NEB NEB SCH ×2 (07:12→19:01)
[2017-05-13 08:00] VITALS: BP 106/68
[2017-05-13 09:00] VITALS: BP 119/82
[2017-05-13] MEDS: LISINOPRIL 5 MG TAB PO SCH (09:36)
[2017-05-13] MEDS: ASPirin-EC 81 mg tab PO SCH (09:36)
[2017-05-13] MEDS: METOPROLOL SUCCINATE XL 50 MG TAB PO SCH (09:36)
[2017-05-13] MEDS: ENOXAPARIN SOD 40 MG/0.4 ML SYRINGE SC SCH (09:37)
[2017-05-13] MEDS: CYANOCOBALAMIN 500 MCG TAB PO SCH (09:40)
[2017-05-13] MEDS ORDERED: predniSONE 20 MG TAB PO SCH (10:00)
[2017-05-13 13:00] VITALS: BP 106/69
[2017-05-13 17:00] VITALS: BP 100/63
[2017-05-13 17:51] LABS: Urine Bilirubin Negative (Negative); Urine Blood Negative /uL (Negative); Urine Color Yellow (Yellow); Urine Ketone Negative (Negative); Urine Nitrite Negative (Negative); Urine RBC <1 /hpf (0 - 3); Urine Urobilinogen Normal (Negative)
[2017-05-13 18:04] LABS: Urine Glucose 4+ mg/dL (Normal)
[2017-05-13] MEDS: MORPHINE SULFATE 4 MG/ML SYRG IV PRN (18:24)
[2017-05-13 22:44] VITALS: BP 101/61
[2017-05-14] MEDS: DOXYCYCLINE HYC 100MG/250ML 250 ML IV SCH (00:31)
[2017-05-14] MEDS: HYDROcodone-ACET 5/325MG TAB PO PRN ×3 (00:36→21:27)
[2017-05-14] MEDS: IPRATROPIUM BROM 0.5 MG/2.5ML INH SOL NEB SCH ×4 (00:54→19:17)
[2017-05-14] MEDS: ALBUTEROL SULF 2.5 MG/0.5ML(0.5%) NEB SOLN NEB SCH ×4 (00:55→19:17)
[2017-05-14 05:43] VITALS: BP 100/73
[2017-05-14] MEDS: InsuLIN REG 1unit/0.01ml Soln (100units/ml) SC SCH ×4 (06:27→21:59)
[2017-05-14] MEDS: ACCU-CHEK COMFORT CURVE STRIP VI SCH ×4 (06:28→21:59)
[2017-05-14] MEDS: BUDESONIDE (INHALATION) 0.5 MG/2 ML NEB NEB SCH ×2 (06:39→19:17)
[2017-05-14 07:14] LABS: CONDITION Y; Hematocrit 42.8 % (41.0-53.0); Hemoglobin 14.5 g/dL (13.5-17.5); Mean Corpuscular Hemoglobin 32.3 pg (28.0-32.0); Mean Corpuscular Hgb Conc. 33.9 g/dL (32.0-36.0); Mean Corpuscular Volume 95.5 fL (80.0-100.0); Mean Platelet Volume 7.9 fL (7.4-10.4); Platelet Count (auto) 265 10^3/uL (140-450); Red Cell Distribution Width 14.1 % (11.6-16.0); SUSPECT SEE PRINTOUT; White Blood Cell 13.4 10^3/uL (4.4-10.8)
[2017-05-14 07:29] LABS: BUN/Creatinine Ratio 34.5; Calcium 8.9 mg/dL (8.5-10.1); Potassium 4.4 mmol/L (3.5-5.1)
[2017-05-14 07:55] LABS: Metamyelocytes % 0; Myelocytes % 0; Promyelocytes % 0; Reactive Lymphocytes 0
[2017-05-14 08:00] VITALS: BP 119/82
[2017-05-14 08:11] LABS: Large Platelets FEW; Platelet Clumps FEW
[2017-05-14 08:12] LABS: Platelet Estimate Adequate
[2017-05-14 09:23] VITALS: BP 107/72
[2017-05-14] MEDS: predniSONE 20 MG TAB PO SCH (10:56)
[2017-05-14] MEDS: METOPROLOL SUCCINATE XL 50 MG TAB PO SCH (10:57)
[2017-05-14] MEDS: ASPirin-EC 81 mg tab PO SCH (10:57)
[2017-05-14] MEDS: CYANOCOBALAMIN 500 MCG TAB PO SCH (10:57)
[2017-05-14] MEDS: ENOXAPARIN SOD 40 MG/0.4 ML SYRINGE SC SCH (10:58)
[2017-05-14] MEDS: LISINOPRIL 5 MG TAB PO SCH (10:58)
[2017-05-14] MEDS: PIPERACILLIN-TAZOB 3.375GM/D5W100ML IV SCH ×3 (12:18→23:34)
[2017-05-14 12:53] LABS: INR 0.91 (0.9-1.15); Prothrombin Time 9.9 sec (9.37-12.3)
[2017-05-14 13:00] VITALS: BP 90/63
[2017-05-14] MEDS ORDERED: LIDOCAINE 1% HCL (LOCAL ANESTH.) INJ 20ML MDV ID ONE (17:30)
[2017-05-14 17:47] VITALS: BP 77/50
[2017-05-14] MEDS: ENOXAPARIN SOD 80 MG/0.8ML SYRINGE SC SCH (21:08)
[2017-05-14] MEDS: APIXABAN 5 MG TAB PO SCH (21:27)
[2017-05-14 22:00] VITALS: BP 84/59
[2017-05-14] MEDS: SODIUM CHLOR 0.9% PF (SALINE LOCK) 10ML VIAL IV SCH (22:00)
[2017-05-14] MEDS ORDERED: ALBUMIN 5% 250 ML IV ONE (23:00)
[2017-05-15] VITALS (78 sets, daily range): BP systolic 61–162; BP diastolic 26–142
[2017-05-15] MEDS: ALBUTEROL SULF 2.5 MG/0.5ML(0.5%) NEB SOLN NEB SCH ×4 (00:39→18:13)
[2017-05-15] MEDS: IPRATROPIUM BROM 0.5 MG/2.5ML INH SOL NEB SCH ×4 (00:39→18:13)
[2017-05-15] MEDS: PIPERACILLIN-TAZOB 3.375GM/D5W100ML IV SCH ×3 (05:19→18:00)
[2017-05-15] MEDS ORDERED: methylPREDNISolone SOD SUCC 125 MG/2 ML VL ONE (05:26)
[2017-05-15] MEDS ORDERED: LORazepam 2MG/ML-1ML VIAL ONE (05:29)
[2017-05-15] MEDS ORDERED: SUCCINYLCHOLINE CHLORIDE 20 MG/ML 10ML VIAL IV ONE (05:35)
[2017-05-15] MEDS ORDERED: ETOMIDATE (2MG/ML) 20ML VIAL IV ONE (05:35)
[2017-05-15] MEDS ORDERED: methylPREDNISolone SOD SUCC 125 MG/2 ML VL IV ONE (05:45)
[2017-05-15] MEDS ORDERED: LORazepam 2MG/ML-1ML VIAL IV ONE (05:45)
[2017-05-15] MEDS ORDERED: NOREPINEPHRINE BITARTRATE 250 ML IV ONE (05:48)
[2017-05-15] MEDS ORDERED: MIDAZOLAM DRIP 50 mg/50mL 50 ML IV ONE (05:49)
[2017-05-15] MEDS: ACCU-CHEK COMFORT CURVE STRIP VI SCH ×4 (06:16→22:00)
[2017-05-15] MEDS: InsuLIN REG 1unit/0.01ml Soln (100units/ml) SC SCH ×4 (06:17→22:00)
[2017-05-15 07:36] LABS: Albumin 2.1 g/dL (3.4-5.0); Bilirubin, Total 0.4 mg/dL (0.2-1.0); Calcium 7.6 mg/dL (8.5-10.1); Total Protein 4.2 g/dL (6.4-8.2)
[2017-05-15] MEDS: MIDAZOLAM DRIP 50 mg/50mL 50 ML IV SCH ×2 (08:00→19:28)
[2017-05-15] MEDS: NOREPINEPHRINE BITARTRATE 250 ML IV SCH ×2 (08:00→19:28)
[2017-05-15 08:22] LABS: Base Excess -4.4 mmol/L (-2.0-2.0); Blood 02Sat 93.1 % (96-100); Blood COHb 0.3 % (0.5-1.5); Blood MetHb 0.1 % (0.0-1.5); HCO3 21.3 mmol/L (22-26.0); HHb 6.9 % (0.0-5.0); MODE VENT - A/C; O2Hb 92.7 % (94.0-97.0); PCO2 41.9 mmHg (35.0-45.0); PCO2(T) 41.9 mmHg (35.0-45.0); PIP 20; PO2 78.8 mmHg (80.0-100.0); PO2(T) 78.8 mmHg (80.0-100.0); Sample Type Arterial; pH 7.324 (7.350-7.450)
[2017-05-15 08:32] LABS: Hematocrit 27.7 % (41.0-53.0); Hemoglobin 9.4 g/dL (13.5-17.5); Mean Corpuscular Hemoglobin 32.4 pg (28.0-32.0); Mean Corpuscular Hgb Conc. 33.9 g/dL (32.0-36.0); Mean Corpuscular Volume 95.6 fL (80.0-100.0); Mean Platelet Volume 7.7 fL (7.4-10.4); Platelet Count (auto) 213 10^3/uL (140-450); Red Cell Distribution Width 12.6 % (11.6-16.0); SUSPECT SEE PRINTOUT
[2017-05-15 08:36] LABS: Metamyelocytes % 0; Myelocytes % 0; Promyelocytes % 0; Reactive Lymphocytes 0
[2017-05-15 08:49] LABS: Platelet Estimate Adequate
[2017-05-15 08:50] LABS: RBC Morphology Normal
[2017-05-15 09:59] LABS: INR 1.15 (0.9-1.15)
[2017-05-15 10:00] LABS: Prothrombin Time 12.6 sec (9.37-12.3)
[2017-05-15] MEDS: APIXABAN 5 MG TAB PO SCH (11:46)
[2017-05-15] MEDS: CYANOCOBALAMIN 500 MCG TAB PO SCH (11:46)
[2017-05-15] MEDS: METOPROLOL SUCCINATE XL 50 MG TAB PO SCH (11:46)
[2017-05-15] MEDS: BUDESONIDE (INHALATION) 0.5 MG/2 ML NEB NEB SCH ×2 (11:46→18:13)
[2017-05-15] MEDS: ASPirin-EC 81 mg tab PO SCH (11:46)
[2017-05-15] MEDS: predniSONE 20 MG TAB PO SCH (11:47)
[2017-05-15] MEDS: ENOXAPARIN SOD 80 MG/0.8ML SYRINGE SC SCH ×2 (11:47→22:00)
[2017-05-15] MEDS: SODIUM CHLOR 0.9% PF (SALINE LOCK) 10ML VIAL IV SCH ×2 (11:47→19:51)
[2017-05-15] MEDS: SODIUM CHLORIDE 0.9% 1,000 ML IV SCH (14:15)
[2017-05-15 19:34] LABS: Hematocrit 28.6 % (41.0-53.0); Hemoglobin 9.8 g/dL (13.5-17.5)
[2017-05-15] MEDS: PHENYLEPHRINE INJ 20 MG in SODIUM CHL 0.9% 250 ML IV SCH (19:47)
[2017-05-16] VITALS (85 sets, daily range): BP systolic 71–200; BP diastolic 20–119
[2017-05-16] MEDS: IPRATROPIUM BROM 0.5 MG/2.5ML INH SOL NEB SCH ×4 (00:09→18:09)
[2017-05-16] MEDS: ALBUTEROL SULF 2.5 MG/0.5ML(0.5%) NEB SOLN NEB SCH ×4 (00:09→18:09)
[2017-05-16] MEDS: SODIUM CHLORIDE 0.9% 1,000 ML IV SCH (00:15)
[2017-05-16 00:34] LABS: Hematocrit 30.2 % (41.0-53.0)
[2017-05-16 00:56] LABS: Allen Test Modified; Base Excess -11.7 mmol/L (-2.0-2.0); Blood 02Sat 96.7 % (96-100); Blood COHb 0.3 % (0.5-1.5); Blood MetHb 0.3 % (0.0-1.5); HCO3 13.5 mmol/L (22-26.0); HHb 3.3 % (0.0-5.0); MODE VENT - A/C; O2Hb 96.1 % (94.0-97.0); PCO2 28.2 mmHg (35.0-45.0); PCO2(T) 28.2 mmHg (35.0-45.0); PO2 120.3 mmHg (80.0-100.0); PO2(T) 120.3 mmHg (80.0-100.0); Sample Type Arterial; pH 7.297 (7.350-7.450)
[2017-05-16] MEDS: PHENYLEPHRINE INJ 20 MG in SODIUM CHL 0.9% 250 ML IV SCH ×3 (01:16→20:45)
[2017-05-16] MEDS: NOREPINEPHRINE BITARTRATE 250 ML IV SCH (01:16)
[2017-05-16] MEDS: MIDAZOLAM DRIP 50 mg/50mL 50 ML IV SCH (01:17)
[2017-05-16] MEDS ORDERED: ALBUMIN 5% 250 ML IV ONE (02:00)
[2017-05-16] MEDS ORDERED: PANTOPRAZOLE SODIUM 40 MG/10 ML VIAL IV ONE (02:03)
[2017-05-16] MEDS: fentaNYL Drip 2500mCg/250mlNS 250 ML IV SCH (02:10)
[2017-05-16] MEDS ORDERED: SODIUM BICARBONATE 8.4 % INJ 50ML VIAL IV ONE ×3 (04:15→21:30)
[2017-05-16] MEDS ORDERED: SODIUM BICARBONATE 8.4% INJ 50ML SYRINGE ONE ×2 (04:35→21:59)
[2017-05-16 04:49] LABS: BUN/Creatinine Ratio 36.6; Calcium 7.2 mg/dL (8.5-10.1); Magnesium 2.4 mg/dL (1.6-2.6)
[2017-05-16 04:56] LABS: Potassium 6.6 mmol/L (3.5-5.1)
[2017-05-16] MEDS ORDERED: PHENYLEPHRINE IV 250 ML IV ONE ×2 (04:57→10:26)
[2017-05-16] MEDS ORDERED: CALCIUM GLUC 4.65 MEQ/10ML 4.65 MEQ in SODIUM CHL 0.9% 50 ML IV ONE ×2 (05:45→21:30)
[2017-05-16] MEDS ORDERED: DEXTROSE (50%) 50ML SYRG IV ONE ×3 (05:45→21:30)
[2017-05-16] MEDS ORDERED: InsuLIN REG 1unit/0.01ml Soln (100units/ml) IV ONE ×3 (05:45→21:30)
[2017-05-16] MEDS ORDERED: SODIUM POLYSTYRENE SULF 15GM/60ML SUSP PO ONE (05:45)
[2017-05-16] MEDS: BUDESONIDE (INHALATION) 0.5 MG/2 ML NEB NEB SCH ×2 (06:03→18:10)
[2017-05-16 06:45] LABS: CONDITION Y; Hematocrit 25.3 % (41.0-53.0); Hemoglobin 8.6 g/dL (13.5-17.5); Mean Corpuscular Hemoglobin 32.9 pg (28.0-32.0); Mean Corpuscular Volume 96.9 fL (80.0-100.0); Mean Platelet Volume 8.5 fL (7.4-10.4); Platelet Count (auto) 167 10^3/uL (140-450); Red Cell Distribution Width 13.8 % (11.6-16.0); SUSPECT SEE PRINTOUT
[2017-05-16 07:09] LABS: Albumin 2.4 g/dL (3.4-5.0); BUN/Creatinine Ratio 33.1
[2017-05-16] MEDS ORDERED: SODIUM CHLORIDE 0.9% 1,000 ML IV ONE ×2 (07:15→08:45)
[2017-05-16 07:25] LABS: Allen Test Modified; Base Excess -11.7 mmol/L (-2.0-2.0); Blood 02Sat 90.6 % (96-100); Blood COHb 0.4 % (0.5-1.5); Blood MetHb 0.3 % (0.0-1.5); HCO3 15.2 mmol/L (22-26.0); HHb 9.3 % (0.0-5.0); MODE VENT - A/C; PCO2 38.3 mmHg (35.0-45.0); PCO2(T) 38.3 mmHg (35.0-45.0); PO2 74.8 mmHg (80.0-100.0); PO2(T) 74.8 mmHg (80.0-100.0); Sample Type Arterial; Spont Vt 467; pH 7.216 (7.350-7.450)
[2017-05-16 07:26] LABS: Bilirubin, Total 1.7 mg/dL (0.2-1.0); Total Protein 4.5 g/dL (6.4-8.2)
[2017-05-16 07:46] LABS: Promyelocytes % 0; Reactive Lymphocytes 0
[2017-05-16] MEDS: InsuLIN REG 1unit/0.01ml Soln (100units/ml) SC SCH ×4 (08:00→23:51)
[2017-05-16] MEDS: PIPERACILLIN-TAZOB 3.375GM/D5W100ML IV SCH ×2 (08:00)
[2017-05-16] MEDS: ACCU-CHEK COMFORT CURVE STRIP VI SCH ×4 (08:00→23:30)
[2017-05-16] MEDS: SODIUM BICARBONATE 50ML VIAL 150 ML in D5W 5% 1,000 ML IV SCH ×2 (08:15→19:45)
[2017-05-16 09:31] LABS: Metamyelocytes % 2; Myelocytes % 1
[2017-05-16 09:32] LABS: Platelet Estimate Adequate
[2017-05-16 09:34] LABS: Ovalocytes FEW
[2017-05-16 09:35] LABS: Burr Cells FEW
[2017-05-16] MEDS ORDERED: PANTOPRAZOLE SODIUM 40 MG/10 ML VIAL IV SCH (10:00)
[2017-05-16 10:30] LABS: BUN/Creatinine Ratio 32.4; Calcium 6.9 mg/dL (8.5-10.1)
[2017-05-16 10:58] LABS: Potassium 7.1 mmol/L (3.5-5.1)
[2017-05-16] MEDS: SODIUM CHLOR 0.9% PF (SALINE LOCK) 10ML VIAL IV SCH ×2 (11:26→22:10)
[2017-05-16] MEDS: methylPREDNISolone SOD SUCC 40 MG/ML VL IV SCH (11:26)
[2017-05-16 11:47] LABS: Urine Bilirubin Negative (Negative); Urine Color Yellow (Yellow); Urine Glucose 1+ mg/dL (Normal); Urine Urobilinogen Normal (Negative)
[2017-05-16 11:48] LABS: Urine Blood 3+ /uL (Negative); Urine Ketone Negative (Negative); Urine Nitrite Negative (Negative)
[2017-05-16 11:50] LABS: Urine Mucus FEW (None Seen); Urine RBC 49 /hpf (0 - 3); Urine Squamous Epithelial Cell FEW /hpf (<5)
[2017-05-16 12:45] LABS: Hematocrit 22.2 % (41.0-53.0); Hemoglobin 7.8 g/dL (13.5-17.5)
[2017-05-16] MEDS: CeftoloZANE-TAZOB 1g/0.5g in D5W 5% 100 ML IV SCH ×2 (14:39→20:00)
[2017-05-16] MEDS: CYANOCOBALAMIN 500 MCG TAB PO SCH (14:39)
[2017-05-16 19:15] LABS: CONDITION Y; DEFINITIVE SEE PRINTOUT; Hematocrit 22.4 % (41.0-53.0); Hemoglobin 7.7 g/dL (13.5-17.5); Mean Corpuscular Hemoglobin 33.3 pg (28.0-32.0); Mean Corpuscular Hgb Conc. 34.3 g/dL (32.0-36.0); Mean Corpuscular Volume 97.2 fL (80.0-100.0); Mean Platelet Volume 9.2 fL (7.4-10.4); Platelet Count (auto) 132 10^3/uL (140-450); Red Cell Distribution Width 14.7 % (11.6-16.0); SUSPECT SEE PRINTOUT; White Blood Cell 11.4 10^3/uL (4.4-10.8)
[2017-05-16 19:46] LABS: Metamyelocytes % 0; Myelocytes % 0; Promyelocytes % 0; Reactive Lymphocytes 0
[2017-05-16 19:48] LABS: BUN/Creatinine Ratio 28.8
[2017-05-16 21:04] LABS: Platelet Estimate Decreased
[2017-05-16 21:05] LABS: Burr Cells MODERATE; Large Platelets FEW
[2017-05-16] MEDS: PANTOPRAZOLE SODIUM 40 MG/10 ML VIAL IV SCH (23:15)
[2017-05-16] MEDS: ENOXAPARIN SOD 60 MG/0.6 ML SYRINGE SC SCH (23:15)
[2017-05-17] VITALS (57 sets, daily range): BP systolic 73–118; BP diastolic 45–65
[2017-05-17] MEDS: IPRATROPIUM BROM 0.5 MG/2.5ML INH SOL NEB SCH ×3 (00:21→13:51)
[2017-05-17] MEDS: ALBUTEROL SULF 2.5 MG/0.5ML(0.5%) NEB SOLN NEB SCH ×3 (00:21→13:51)
[2017-05-17] MEDS ORDERED: CALCIUM GLUC 4.65 MEQ/10ML 4.65 MEQ in SODIUM CHL 0.9% 50 ML IV SCH (01:00)
[2017-05-17] MEDS ORDERED: DEXTROSE (50%) 50ML SYRG IV ONE ×2 (01:00→04:00)
[2017-05-17] MEDS ORDERED: SODIUM BICARBONATE 8.4 % INJ 50ML VIAL IV ONE ×3 (01:00→07:45)
[2017-05-17] MEDS ORDERED: InsuLIN REG 1unit/0.01ml Soln (100units/ml) IV ONE ×2 (01:00→04:00)
[2017-05-17] MEDS ORDERED: SODIUM BICARBONATE 8.4% INJ 50ML SYRINGE ONE ×2 (01:20→04:40)
[2017-05-17] MEDS: fentaNYL Drip 2500mCg/250mlNS 250 ML IV SCH (01:50)
[2017-05-17 03:54] LABS: CONDITION Y; DEFINITIVE SEE PRINTOUT; Hematocrit 18.7 % (41.0-53.0); Mean Corpuscular Hemoglobin 33.2 pg (28.0-32.0); Mean Corpuscular Hgb Conc. 33.8 g/dL (32.0-36.0); Mean Corpuscular Volume 98.4 fL (80.0-100.0); Mean Platelet Volume 9.4 fL (7.4-10.4); Platelet Count (auto) 104 10^3/uL (140-450); Red Cell Distribution Width 14.5 % (11.6-16.0); SUSPECT SEE PRINTOUT; White Blood Cell 8.8 10^3/uL (4.4-10.8)
[2017-05-17] MEDS ORDERED: CALCIUM GLUC 4.65 MEQ/10ML 4.65 MEQ in SODIUM CHL 0.9% 50 ML IV ONE (04:00)
[2017-05-17 04:21] LABS: Albumin 1.7 g/dL (3.4-5.0); BUN/Creatinine Ratio 26.3; Bilirubin, Total 2.1 mg/dL (0.2-1.0); Calcium 6.7 mg/dL (8.5-10.1); Total Protein 3.4 g/dL (6.4-8.2); Uric Acid 11.8 mg/dL (3.5-7.2)
[2017-05-17 04:32] LABS: Potassium 6.4 mmol/L (3.5-5.1)
[2017-05-17 04:34] LABS: Prothrombin Time 45.8 sec (9.37-12.3)
[2017-05-17 04:38] LABS: INR 4.14 (0.9-1.15); Partial Thromboplastin Time 77.7 sec (22.64-33.71)
[2017-05-17 04:45] LABS: Hemoglobin 6.3 g/dL (13.5-17.5)
[2017-05-17 04:46] LABS: Promyelocytes % 0; Reactive Lymphocytes 0
[2017-05-17] MEDS: CeftoloZANE-TAZOB 1g/0.5g in D5W 5% 100 ML IV SCH ×2 (05:00→12:00)
[2017-05-17] MEDS: PHENYLEPHRINE INJ 20 MG in SODIUM CHL 0.9% 250 ML IV SCH ×2 (05:05→09:30)
[2017-05-17 05:10] LABS: Phosphorus 8.7 mg/dL (2.5-4.90)
[2017-05-17 05:38] LABS: Metamyelocytes % 11; Myelocytes % 11
[2017-05-17 05:39] LABS: Anisocytosis Slight; Burr Cells MODERATE; Platelet Estimate Decreased
[2017-05-17] MEDS: NOREPINEPHRINE BITARTRATE 250 ML IV SCH ×2 (05:53→10:57)
[2017-05-17] MEDS ORDERED: PHENYLEPHRINE IV 250 ML IV ONE (06:18)
[2017-05-17] MEDS ORDERED: VASOPRESSIN 20 UNIT/ML ONE (06:30)
[2017-05-17] MEDS: VASOPRESSIN 50 UNITS in SODIUM CHL 0.9% 247.5 ML IV SCH ×2 (06:30→12:44)
[2017-05-17] MEDS: ACCU-CHEK COMFORT CURVE STRIP VI SCH ×2 (07:00→11:30)
[2017-05-17] MEDS: InsuLIN REG 1unit/0.01ml Soln (100units/ml) SC SCH ×2 (07:00→11:30)
[2017-05-17 07:13] LABS: Allen Test Yes; Base Excess -13.8 mmol/L (-2.0-2.0); Blood 02Sat 75.4 % (96-100); Blood COHb 1.3 % (0.5-1.5); Blood MetHb 1.1 % (0.0-1.5); HCO3 13.9 mmol/L (22-26.0); MODE VENT - A/C; O2Hb 73.6 % (94.0-97.0); PCO2 41.2 mmHg (35.0-45.0); PCO2(T) 41.2 mmHg (35.0-45.0); PO2 51.9 mmHg (80.0-100.0); PO2(T) 51.9 mmHg (80.0-100.0); Sample Type Arterial; pH 7.146 (7.350-7.450)
[2017-05-17] MEDS: BUDESONIDE (INHALATION) 0.5 MG/2 ML NEB NEB SCH (07:35)
[2017-05-17] MEDS: SODIUM BICARBONATE 50ML VIAL 150 ML in D5W 5% 1,000 ML IV SCH (08:46)
[2017-05-17] MEDS: MIDAZOLAM DRIP 50 mg/50mL 50 ML IV SCH (08:46)
[2017-05-17] MEDS: ENOXAPARIN SOD 60 MG/0.6 ML SYRINGE SC SCH (10:00)
[2017-05-17] MEDS: SODIUM CHLOR 0.9% PF (SALINE LOCK) 10ML VIAL IV SCH (10:15)
[2017-05-17] MEDS: PANTOPRAZOLE SODIUM 40 MG/10 ML VIAL IV SCH (10:15)
[2017-05-17] MEDS: CYANOCOBALAMIN 500 MCG TAB PO SCH (10:15)
[2017-05-17] MEDS: methylPREDNISolone SOD SUCC 40 MG/ML VL IV SCH (10:15)
[2017-05-17] MEDS ORDERED: PHENYLEPHRINE INJ 40 MG in SODIUM CHL 0.9% 250 ML IV SCH (11:15)
[2017-05-17] MEDS ORDERED: LINEZOLID 600MG/300ML 300 ML IV SCH ×2 (14:00→22:00)
[2017-05-17] MEDS ORDERED: CeftoloZANE-TAZOB 0.75 GM in D5W 5% 100 ML IV SCH (20:00)
== END 2017-05-17 18:30 | disposition expired | DRG 871 ==
LOC: EDBD 14:58 → ER 15:02 → TELE 15:03 → TELE-WESTW 21:31 → DOU IN ICU 05-15 05:35 → ICU WEST 05-15 05:35 → ICU CENTRL 05-15 07:57 → ICU WEST 05-15 07:59
PROVIDERS: ADMIT Internal Medicine; ATTEND Internal Medicine
PROC: 5A1935Z Respiratory Ventilation, Less than 24 Consecutive Hours (ICD-10-PCS; principal; 2017-05-15)
PROC: 0BH17EZ Insertion of Endotracheal Airway into Trachea, Via Natural or Artificial Opening (ICD-10-PCS; 2017-05-15)
DX: A41.9 Sepsis, unspecified organism (principal); J18.9 Pneumonia, unspecified organism; J96.01 Acute respiratory failure with hypoxia; N17.0 Acute kidney failure with tubular necrosis; I26.99 Other pulmonary embolism without acute cor pulmonale; R65.21 Severe sepsis with septic shock; J44.1 Chronic obstructive pulmonary disease with (acute) exacerbation; E87.2 Acidosis; I73.9 Peripheral vascular disease, unspecified; I25.10 Atherosclerotic heart disease of native coronary artery without angina pectoris; E87.5 Hyperkalemia
CPT/HCPCS: 36415; 36569; 36600; 70450; 71010; 71020; 74176; 76775; 78582; 80048; 80053; 80307; 81001; 82550; 82570; 82805; 82962; 83036; 83605; 83735; 83880; 84100; 84156; 84300; 84443; 84484; 84550; 85007; 85014; 85018; 85025; 85027; 85379; 85610; 85652; 85730; 86850; 86900; 86901; 86920; 87040; 87070; 87077; 87081; 87186; 87205; 93005; 93970; 94002; 94003; 94640; 94761; 96365; 96368; 96375; 97163; C9113; J0330; J0696; J1815; J1956; J2250; J2543; J3010; J3490; J7060